=== PATIENT | female | born 1955 | race Caucasian/White ===

== ENCOUNTER 2019-04-24 15:30 | Outpatient (AMBR) | payer MEDICAID, SELFPAY ==
--- NOTE | 2019-04-22 18:26 | PT.ODAYNRPT ---
PT Outpatient Daily Note Date of Service: April 22, 2019 OP Daily Note Visit Reasons: right knee post op Outpatient Physical Therapy Treatment Date: 04/22/19 Subjective: The knee is feeling stronger Objective: See F/S for therex MT: PPM into extension x5' Assessment: Pt lacking knee extension in supine and with gait. Slight improvement after manual therapy today. Pt encouraged to buy ankle weights to use to improve extension. Plan: Improve knee extension Length of Time (minutes) of Treatment: 30 Minutes Office Procedures PT Procedures PT Date of Service: 04/22/19 Therapeutic Exercise 30 minutes: Yes
--- NOTE | 2019-04-24 18:19 | PT.ODAYNRPT ---
PT Outpatient Daily Note Date of Service: April 24, 2019 OP Daily Note Visit Reasons: right knee post op Outpatient Physical Therapy Treatment Date: 04/24/19 Subjective: The knee is feeling stronger but she didn't like the partial body weight squats last visit, they were hard She reports she bought ankle weights for more knee extension. Objective: See F/S for therex MT: PPM into extension x'7 Assessment: Pt lacking knee extension in supine and with gait. Slight improvement after Rx today. Plan: Improve knee extension Length of Time (minutes) of Treatment: 30 Minutes Office Procedures PT Procedures PT Date of Service: 04/22/19 Therapeutic Exercise 30 minutes: Yes PT Procedures PT Date of Service: 04/24/19 Therapeutic Exercise 30 minutes: Yes
== END 2019-05-20 23:59 | disposition home or self-care (01) ==
PROVIDERS: PCP Family Medicine; Referring Provider Family Medicine; Visit Provider Family Medicine
DX: S83.241D Other tear of medial meniscus, current injury, right knee, subsequent encounter (principal); S83.281D Other tear of lateral meniscus, current injury, right knee, subsequent encounter; M17.11 Unilateral primary osteoarthritis, right knee; E11.9 Type 2 diabetes mellitus without complications; X58.XXXD Exposure to other specified factors, subsequent encounter
CPT/HCPCS: 97110

== ENCOUNTER → 2024-08-19 | Outpatient (CLI) | payer MEDICARE, SELFPAY ==
--- NOTE | 2024-08-19 15:10 | XR_ITS ---
Examination: Right knee 2 views Technique one AP lateral right knee 2 views Exam date and time: August 19, 2024 1517 hours Comparison November 28, 2019 INDICATIONS: Patient fell 2 weeks ago with injury to the knee, knee pain. FINDINGS: No acute fracture Moderate osteopenia Moderate to advanced tricompartment osteoarthritis IMPRESSION: No acute fracture
== END | disposition home or self-care (01) ==
PROVIDERS: PCP Internal Medicine; Referring Provider Internal Medicine; Visit Provider Internal Medicine
DX: S89.91XA Unspecified injury of right lower leg, initial encounter (principal); W19.XXXA Unspecified fall, initial encounter
CPT/HCPCS: 73560

== ENCOUNTER → 2024-09-11 | Outpatient (CLI) | payer MEDICARE, MEDICAID, SELFPAY ==
--- NOTE | 2024-09-11 11:15 | XR_ITS ---
Examination: Screening digital mammography, bilateral Computer aided detection 3-D breast Tomosynthesis, bilateral Date and time of exam: September 11, 2024 1054 hours Compared to mammograms dating to April 19, 2005 Indication: Screening Technique: Nonmagnified MLO, CC views of the breasts to been obtained, reconstructed from 3-D Tomosynthesis images. R2 computer aided detection program utilized for evaluation of suspicious masses and/or abnormal calcifications. 3-D Tomosynthesis images obtained. Findings: The breasts are heterogeneously dense, which may obscure small masses 16 mm focal asymmetry upper inner right breast Benign calcifications Impression: BI-RADS Category 0: Incomplete: Need additional imaging evaluation Recommend follow-up spot tomographic views of 16 mm focal asymmetry upper inner right breast as well as bilateral breast sonography to complete the workup
== END | disposition home or self-care (01) ==
PROVIDERS: Referring Provider Internal Medicine; Visit Provider Internal Medicine
DX: Z12.31 Encounter for screening mammogram for malignant neoplasm of breast (principal); N64.89 Other specified disorders of breast
CPT/HCPCS: 77063; 77067

== ENCOUNTER → 2024-12-12 | Outpatient (CLI) | payer MEDICARE, MEDICAID, SELFPAY ==
--- NOTE | 2024-12-12 16:30 | XR_ITS ---
Exam: MRI knee without contrast, right Date and time of exam: December 12, 2024 1642 hours INDICATIONS: Anterior right knee swelling and pain one month Technique: Multiple axial, coronal, and sagittal sections on the knee have been obtained. T2-Weighted sagittal, fat-suppressed images, TR 3,500, TE 62, T2 weighted coronal fat-saturated images, TR 3,500, TE 62 Proton density sagittal sections, TR 1800, TE 31. T-1 weighted coronal images, TR 524, TE 13.0 Findings: Patient motion severely degrades scan image quality Suspicious for horizontal linear tear posterior horn medial meniscus Cruciate ligaments are intact Severe narrowing medial joint space IMPRESSION: Severely limited study Recommend this patient return with pre-MRI knee intravenous conscious sedation for diagnostic study
== END | disposition home or self-care (01) ==
LOC: SMRI 15:46
PROVIDERS: PCP Internal Medicine; Referring Provider Internal Medicine; Visit Provider Internal Medicine
DX: M25.561 Pain in right knee (principal)
CPT/HCPCS: 73721

== ENCOUNTER → 2025-02-18 | Outpatient (CLI) | payer MEDICARE, MEDICAID, SELFPAY ==
[2025-02-18 08:36] LABS: Basophils # (Auto) 0.1 Thou/mm3 (0.0-0.2); Basophils % (Auto) 1 % (0-2.5); Eosinophils # (Auto) 0.9 Thou/mm3 (0.0-0.5); Eosinophils % (Auto) 10 % (0-10); Hematocrit 38.6 % (36.0-46.0); Hemoglobin 12.3 g/dL (12.0-16.0); Immature Granulocytes Auto 0.03 Thou/mm3 (0.00-0.00); Lymphocytes # (Auto) 2.3 Thou/mm3 (1.0-4.8); Lymphocytes % (Auto) 26 % (10-50); Mean Corpuscular HGB Conc 31.9 g/dl (31.0-37.0); Mean Corpuscular Hemoglobin 28.5 pg (25.0-35.0); Mean Corpuscular Volume 90 fL (80-100); Monocytes # (Auto) 0.6 Thou/mm3 (0.0-0.8); Monocytes % (Auto) 7 % (0-12); Neutrophils # (Auto) 5.0 Thou/mm3 (1.8-7.7); Neutrophils % (Auto) 57 % (37-80); Nucleated Red Blood Cell # 0.00 Thou/mm3 (0.00-0.00); Nucleated Red Blood Cell % 0 /100 WBC (0); Platelet Count 340 Thou/mm3 (140-440); RDW Standard Deviation 43.7 fL (36.4-46.3); Red Blood Count 4.31 Miln/mm3 (4.00-5.20); White Blood Count 8.9 Thou/mm3 (3.6-11.0)
[2025-02-18 08:47] LABS: Glucose Estimated Average 140 mg/dL (80-131); Hemoglobin A1C 6.5 % Hgb (4.8-6.0)
[2025-02-18 09:06] LABS: Alanine Aminotransferase 11 U/L (10-49); Albumin, Serum 4.6 gm/dL (3.4-4.8); Albumin/Globulin Ratio 2.3 (1.2-2.2); Alkaline Phosphatase 79 U/L (46-116); Anion Gap 11 (7-16); Aspartate Amino Transferase 11 U/L (0-34); BUN/Creatinine Ratio 11 Ratio (12-20); Bilirubin,Total 0.3 mg/dL (0.3-1.2); Blood Urea Nitrogen 10 mg/dL (9-23); Calcium 10.0 mg/dL (8.3-10.6); Calcium (Corrected) 10.0 mg/dL (8.5-10.1); Carbon Dioxide 27.5 mMol/L (20.0-31.0); Cardiac Risk Estimate 2.8 RATIO (3.7-5.6); Chloride 105 mMol/L (98-107); Cholesterol 131 mg/dL (132-200); Creatinine (Component) 0.9 mg/dL (0.6-1.3); Free T4 (Free Thyroxine) 1.06 ng/dL (0.89-1.76); Globulin 2.0 gm/dL (2.3-3.5); Glucose 116 mg/dL (74-106); HDL Cholesterol 46 mg/dL (40-60); LDL Cholesterol,Calculated 62 mg/dL (0-130); Osmolality,Calculated 284 (275-295); Potassium 4.0 mMol/L (3.4-5.1); Sodium 143 mMol/L (136-145); Thyroid Stimulating Hormone 2.44 uIU/mL (0.55-4.78); Total Protein 6.6 gm/dL (5.7-8.2); Triglycerides 116 mg/dL (30-150); eGFR > 60 See Note
[2025-02-18 10:05] LABS: Creatinine MALB Rnd Ur 76 mg/dL (30-125); Microalbumin Creat Ratio 8 mg/gCrea (<30); Microalbumin, Random Urine 6 mg/L (0-300)
[2025-02-23 07:25] LABS: Direct LDL* 69 mg/dL (<100)
== END | disposition home or self-care (01) ==
LOC: COPL 07:54
PROVIDERS: PCP Internal Medicine; Referring Provider Psychiatry & Neurology Psychiatry; Visit Provider Psychiatry & Neurology Psychiatry
DX: E11.40 Type 2 diabetes mellitus with diabetic neuropathy, unspecified (principal); E78.5 Hyperlipidemia, unspecified; Z79.899 Other long term (current) drug therapy; Z51.81 Encounter for therapeutic drug level monitoring
CPT/HCPCS: 36415; 80053; 80061; 82043; 82570; 83036; 83721; 84439; 84443; 85025

== ENCOUNTER → 2025-03-03 | Outpatient (CLI) | payer MEDICARE, MEDICAID, SELFPAY ==
--- NOTE | 2025-03-03 13:30 | XR_ITS ---
Examination: Breast ultrasound complete, bilateral Date and time of exam: March 03, 2025, 1331 hours INDICATIONS: Mammogram September 13, 1999 2516 mm focal asymmetry upper inner right breast Technique: Real-time grayscale ultrasonographic imaging bilateral breasts, including all 4 quadrants as well as nipple retroareolar and axillary regions. Findings: Sonographic images right and left breast demonstrate no cystic or solid masses IMPRESSION: BI-RADS Category 1: Negative study
--- NOTE | 2025-03-03 14:30 | XR_ITS ---
Examination: Diagnostic digital mammography, unilateral, right Computer aided detection 3-D breast Tomosynthesis, unilateral Date and time of exam:. 03/03/2025, 1:52 p.m. Comparisons: 2022 through August 2024 Indications: Further evaluation of abnormality seen on prior screening exam Technique: Nonmagnified MLO, CC views of the breast have been obtained, reconstructed from 3-D Tomosynthesis images. R2 computer aided detection program utilized for evaluation of suspicious masses and/or abnormal calcifications. 3-D Tomosynthesis images obtained. Technologist: Findings: The breasts are heterogeneously dense, which may obscure small masses. No evidence of abnormal masses or suspicious calcifications. The previously described abnormality does not persist on spot compression views and represents superimposition of normal fibroglandular tissue Impression: BI-RADS category 1: Negative findings (within normal) Recommend 1 year follow-up mammogram
== END | disposition home or self-care (01) ==
PROVIDERS: PCP Internal Medicine; Referring Provider Internal Medicine; Visit Provider Internal Medicine
DX: R92.313 Mammographic fatty tissue density, bilateral breasts (principal)
CPT/HCPCS: 76641; 77061; 77065; G0279